=== PATIENT | female | born 1975 | race Caucasian/White ===

== ENCOUNTER 2019-12-31 00:38 | Emergency (ER) | payer SELFPAY ==
[~2019-12-31] VITALS: Ht 162.6 cm; Wt 50.0 kg
--- NOTE | 2019-12-31 00:49 | PHYS DOC ---
Past History Past Medical History: Asthma, Bronchitis, UTI Past Medical History Right hernia scar, kyphosis and scoliosis Past Surgical History: , Other Smoking: Cigarettes, Greater than 1 pack/day Drug Use: Marijuana Adult General Chief Complaint Chief Complaint: ".. I ve been sick over two weeiks.. cold, ... sore throat .. fever.. taking ove the counter stuff.. but I got to coughing hard.. .. and felt like I tore a muscle back here on my Lt flank...I felt like maybe it all started with flu.. symptoms... but this coughing and wheezing will not stop..." HPI HPI Patient is a 44 year old FEMALE who presents with above hx and complaints of left flank and chest wall tenderness after a coughing episode. Patient states she's been sick approximately 2 weeks. Patient did not get the flu vaccination. Has had fever, chills, arthralgia, malaise and wheezing. 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 Patient does smoke approximately a pack a day. Patient does have mid back pain on the left with movement and deep coughs. Patient does have a history of kyphosis and scoliosis. Patient has had previous episodes of bronchitis. Patient has history of urinary tract infections with no more dysuria with this episode left flank pain. Patient is gravid for one tubal and 3 C-sections. Patient does have us significant right lower quadrant abdomen wall hernia. Patient denies any history of immunosuppression. Patient denies any IV drug use. No history kidney stones with her family members. Patient denies any history coagulopathy, DVTs, or pulmonary embolisms with her or family members. Patient does have history of asthma primarily as a child but has used a inhaler occasionally has adult with bronchitis/asthma exacerbations. Review of Systems Review of Systems Constitutional: Complaints of fever or chills [] Eyes: Denies change in visual acuity, redness, or eye pain [] HENT: Complains of nasal congestion or sore throat [] Respiratory: Complaints of cough and wheezing. Plaints of left flank and lower chest wall tenderness with deep breaths and cough Cardiovascular: No additional information not addressed in HPI [] GI: Denies abdominal pain, nausea, vomiting, bloody stools or diarrhea [] : Denies dysuria or hematuria [] Musculoskeletal: Denies back pain or joint pain [] Integument: Denies rash or skin lesions [] Neurologic: Denies headache, focal weakness or sensory changes [] Endocrine: Denies polyuria or polydipsia [] All other systems were reviewed and found to be within normal limits, except as documented in this note. Family History Family History Noncontributory Current Medications Current Medications See nursing for home medications Allergies Allergies No known drug allergies Physical Exam Physical Exam Constitutional: Moderate acute distress, non-toxic appearance. [] HENT: Normocephalic, atraumatic, bilateral external ears normal, oropharynx moist, injected pharynx, postnasal drainage, no oral exudates, nose swollen turbinates and clear rhinorrhea. Poor dentition] Eyes: PERRLA, EOMI, conjunctiva normal, no discharge. Glasses Neck: Normal range of motion, no tenderness, supple, no stridor. [] Cardiovascular:Heart rate regular rhythm, no murmur [] Lungs & Thorax: Bilateral breath sounds equal at apex with scattered wheezes throughout on auscultation. Has []left lower chest wall tenderness. Does have some rhonchi over left lower chest wall area. Abdomen: Bowel sounds normal, soft, no tenderness, no masses, no pulsatile masses. Large right lower hernia Skin: Warm, dry, no erythema, no rash. [] Back: Left flank chest wall tenderness, CVA tenderness. [] Marked scoliosis and kyphosis Extremities: No tenderness, no cyanosis, no clubbing, ROM intact, no edema. []Arthritic changes Neurologic: Alert and oriented X 3, normal motor function, normal sensory function, no focal deficits noted. [] Psychologic: Affect normal, judgement normal, mood normal. [] EKG EKG [] Radiology/Procedures Radiology/Procedures [][address] [address] IMAGING REPORT Signed PATIENT: PING OWENS ACCOUNT: [id number] : 1975 LOCATION: ER AGE: 44 SEX: F EXAM STATUS: REG ER ORD. PHYSICIAN: CLARENCE BLACK MD REASON: chest wall pain PROCEDURE: CHEST PA & LATERAL CHEST PA LATERAL Technique: PA and lateral views of the chest were obtained. Clinical History: Comparison: None. Findings: There is S-shaped scoliosis of the thoracolumbar spine. The heart and pulmonary vasculature appear within normal limits. The lungs are clear. The pleural margins are clear. Impression: No acute chest process is seen. Electronically signed by: Gulshan Roe III, MD (12/31/2019 2:16 AM) [id number] DICTATED AND SIGNED BY: GULSHAN ROE III, MD DATE: 12/31/19215 CC: CLARENCE BLACK MD; PCP,NO ~ Course & Med Decision Making Course & Med Decision Making Pertinent Labs and Imaging studies reviewed. (See chart for details) Patient push fluids. Take Tylenol and ibuprofen as needed for discomfort and fever. Encouraged patient to stop smoking. Patient uses MDI 2 puffs 4 times a d ay. Patient take prednisone 50 mg a day for 5 days. Patient take Zithromax 250 mg day for 5 days. Follow up urine cultures. Follow-up primary care. Return if any concerns. Followup urine cultures. Impression- 1. Bronchitis 2. Upper respiratory infection 3 . Chest wall tenderness 4. Mild urinary tract infection 5. Tobacco and marijuana use 6. Large right lower quadrant hernia 7. Scoliosis and kyphosis [] Dragon Disclaimer Dragon Disclaimer This electronic medical record was generated, in whole or in part, using a voice recognition dictation system. Departure Departure: Disposition: HOME/RESIDENCE PRIOR TO ADM Condition: STABLE Referrals: PCP,NO (PCP) Scripts Azithromycin (ZITHROMAX) 250 Mg Tablet 250 MG PO DAILY for ANTI-BIOTIC for 5 Days, #5 TAB 0 Refills Prov: CLARENCE BLACK MD 12/31/19 Prednisone (PREDNISONE) 50 Mg Tablet 50 MG PO DAILY for bronchitis for 5 Days, #5 TAB Prov: CLARENCE BLACK MD 12/31/19 Dragon Disclaimer This chart was dictated in whole or in part using Voice Recognition software in a busy, high-work load, and often noisy Emergency Department environment. It may contain unintended and wholly unrecognized errors or omissions. CLARENCE BLACK MD Dec 31, 2019 00:49
[2019-12-31 01:42] LABS: BARBITURATES NEG (NEG); BENZODIAZEPINES NEG (NEG); BILIRUBIN,URINE NEG (NEG); CANNABINOIDS POS (NEG); CLARITY,URINE CLEAR; COCAINE NEG (NEG); COLOR,URINE YELLOW; GLUCOSE,URINE NEG (NEG); METHADONE NEG (NEG); NITRITE,URINE POS (NEG); OPIATES NEG (NEG); PHENCYCLIDINE NEG (NEG); RBC,URINE 0 /HPF (0-2)
[2019-12-31 01:43] LABS: BACTERIA,URINE FEW /HPF (0-FEW); SQUAMOUS EPITHELIAL CELL,UR FEW /LPF
[2019-12-31 01:47] LABS: AMPHETAMINE/METHAMPHETAMINE NEG (NEG)
[2019-12-31] MEDS ORDERED: AZITHROMYCIN 250 MG TABLET. PO ONE (02:00)
[2019-12-31] MEDS ORDERED: ALBUTEROL SULFATE 8GM INHALER. INH ONE (02:00)
[2019-12-31] MEDS ORDERED: predniSONE 10 MG TABLET PO ONE (02:00)
[2019-12-31] MEDS ORDERED: predniSONE 10 MG TABLET ONE (02:08)
[2019-12-31] MEDS ORDERED: AZITHROMYCIN 250 MG TABLET. ONE (02:08)
[2019-12-31] MEDS ORDERED: ALBUTEROL SULFATE 8GM INHALER. ONE (02:09)
--- NOTE | 2019-12-31 02:19 | RAD ---
CHEST PA LATERAL Technique: PA and lateral views of the chest were obtained. Clinical History: Comparison: None. Findings: There is S-shaped scoliosis of the thoracolumbar spine. The heart and pulmonary vasculature appear within normal limits. The lungs are clear. The pleural margins are clear. Impression: No acute chest process is seen. Electronically signed by: Sung Fernández III, MD (12/31/2019 2:16 AM) [id number]
[2019-12-31 02:55] VITALS: BP 118/70
[2019-12-31] MEDS ORDERED: PRED50TA PO (03:03)
[2019-12-31] MEDS ORDERED: AZIT250T PO (03:03)
[2019-12-31 03:21] LABS: INFLUENZA A PATIENT NEGATIVE (NEGATIVE); INFLUENZA B PATIENT NEGATIVE (NEGATIVE)
== END 2019-12-31 03:30 | disposition home or self-care (01) ==
LOC: ER 00:38
DX: J40 Bronchitis, not specified as acute or chronic (principal); J06.9 Acute upper respiratory infection, unspecified; R07.89 Other chest pain; N39.0 Urinary tract infection, site not specified; M41.9 Scoliosis, unspecified; F12.10 Cannabis abuse, uncomplicated; K46.9 Unspecified abdominal hernia without obstruction or gangrene; F17.210 Nicotine dependence, cigarettes, uncomplicated
CPT/HCPCS: 36415; 71046; 80307; 81001; 81025; 87070; 87086; 87804; 87880; 94640; 99285; J0456; J7512; J7613; 87186; 94664